=== PATIENT | male | born 1995 | race Caucasian/White ===

== ENCOUNTER 2023-11-02 16:50 | Emergency (ER) | payer SELFPAY ==
[~2023-11-02] VITALS: Ht 167.6 cm; Wt 75.0 kg
[2023-11-02 17:02] VITALS: O2SAT 98
[2023-11-03] MEDS ORDERED: IBUP-2029 MT (00:32)
[2023-11-03 01:16] VITALS: BP 130/93; PULSE 82; RESP 20; TEMP 98
== END 2023-11-03 01:17 | disposition home or self-care (01) ==
LOC: ER 16:50
DX: S22.31XA Fracture of one rib, right side, initial encounter for closed fracture (principal); X58.XXXA Exposure to other specified factors, initial encounter; Y93.9 Activity, unspecified; Y92.89 Other specified places as the place of occurrence of the external cause; Y99.8 Other external cause status
CPT/HCPCS: 71101; 99283